=== PATIENT | male | born 1985 | race Caucasian/White ===

== ENCOUNTER 2016-07-03 09:42 | Emergency (ER) | payer BC ==
[~2016-07-03] VITALS: Ht 175.3 cm; Wt 86.2 kg
[~2016-07-03 09:42] MED LIST: APAP/CODEINE ELI5 M1 OR; NAPROSYN500 MG PO; PRILOSEC40 MG PO; ZOFRAN ODT4 MG PO
[2016-07-03 09:43] VITALS: BP 122/91
[2016-07-03] MEDS ORDERED: PROVENTIL HFA6.7 G1 INH (10:27)
[2016-07-03] MEDS ORDERED: PREDNISONE 20 M20 MG PO (10:27)
== END 2016-07-03 11:00 | disposition home or self-care (01) ==
LOC: ER 09:42
DX: J40 Bronchitis, not specified as acute or chronic (principal); R06.02 Shortness of breath; H61.22 Impacted cerumen, left ear; R05 Cough; K21.9 Gastro-esophageal reflux disease without esophagitis

== ENCOUNTER 2016-11-12 15:13 | Emergency (ER) | payer BC ==
[~2016-11-12] VITALS: Ht 175.3 cm; Wt 83.0 kg
--- NOTE | ~2016-11-12 | EKG ---
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
[~2016-11-12 15:13] MED LIST changes: +PREDNISONE 20 M20 MG PO; +PROVENTIL HFA6.7 G1 INH
[2016-11-12 17:33] LABS: ABSOLUTE NEUTROPHILS 3.2 thou/uL (1.4-8.2); BASOPHILS 0.3 % (0.0-2.0); EOSINOPHILS 1.7 % (0.0-3.0); HEMATOCRIT 45.5 % (42.0-52.0); HEMOGLOBIN 15.6 gm/dL (14.0-18.0); LYMPHOCYTES 36.8 % (24.0-44.0); MANUAL DIFF NO; MCH 28.5 pg (26.0-34.0); MCHC 34.4 g/dL (28.0-37.0); MONOCYTES 6.7 % (1.0-8.0); PLATELET COUNT 234 thou/uL (150-400); POLYS 54.5 % (36.0-66.0); RBC 5.48 mil/uL (4.50-6.00); RDW 12.8 % (10.5-14.5); WBC 5.9 thou/uL (4.0-11.0)
[2016-11-12 17:43] LABS: ANION GAP 7 mmol/L (7-16); BUN 17 mg/dL (7-18); CHLORIDE 105 mmol/L (98-107); CO2 30 mmol/L (21-32); GLUCOSE 98 mg/dL (74-106); POTASSIUM 3.8 mmol/L (3.5-5.1); SODIUM 142 mmol/L (136-145)
[2016-11-12 17:56] LABS: NT-PRO BRAIN NAT PEPTIDE 17 pg/mL (<300); TROPONIN-I < 0.04 ng/mL (<0.04-0.07)
[2016-11-12 19:58] VITALS: BP 113/78
[2016-11-12] MEDS ORDERED: NAPROSYN500 MG PO (20:01)
== END 2016-11-12 20:09 | disposition home or self-care (01) ==
LOC: ER 15:13
PROVIDERS: Nurse Practitioner
DX: R07.89 Other chest pain (principal); K21.9 Gastro-esophageal reflux disease without esophagitis

== ENCOUNTER → 2017-09-19 | Outpatient (CLI) | payer BC ==
--- NOTE | ~2017-09-19 | EKG ---
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
== END ==
LOC: RAD 08:43 → CV 08:43
DX: R07.9 Chest pain, unspecified (principal); K21.9 Gastro-esophageal reflux disease without esophagitis; M25.551 Pain in right hip

== ENCOUNTER 2018-05-29 20:18 | Emergency (ER) | payer BC ==
[~2018-05-29] VITALS: Ht 175.3 cm; Wt 78.9 kg
[2018-05-29 20:19] VITALS: BP 88/65
[2018-05-29] MEDS ORDERED: OMEPRAZOLE40 MG PO (20:25)
[2018-05-29] MEDS ORDERED: IBUPROFEN 600600 M1 PO (21:10)
== END 2018-05-29 21:19 | disposition home or self-care (01) ==
LOC: ER 20:18
DX: S50.11XA Contusion of right forearm, initial encounter (principal); K21.9 Gastro-esophageal reflux disease without esophagitis; Z90.49 Acquired absence of other specified parts of digestive tract; W20.8XXA Other cause of strike by thrown, projected or falling object, initial encounter; Y92.89 Other specified places as the place of occurrence of the external cause; Y99.0 Civilian activity done for income or pay; Y99.8 Other external cause status

== ENCOUNTER 2019-09-30 18:32 | Emergency (ER) | payer BC ==
[~2019-09-30] VITALS: Ht 172.7 cm; Wt 83.5 kg
--- NOTE | ~2019-09-30 | EKG ---
[facility] [place] [address] ELECTROCARDIOGRAM REPORT Name: SILIVA VALERA II Room #: REG DEBBIE Ambriz#: [id number] Admission: 09/30/19 Attend Phys: Discharge: Date of : 85 Report #: [id number] THIS REPORT FOR: cc: Iram Delarosa MD, Amir R. 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
[~2019-09-30 18:32] MED LIST changes: +IBUPROFEN 600600 M1 PO; +OMEPRAZOLE40 MG PO
[2019-09-30 19:01] LABS: ABSOLUTE NEUTROPHILS 3.2 thou/uL (1.4-8.2); BASOPHILS 0.6 % (0.0-2.0); EOSINOPHILS 2.5 % (0.0-3.0); HEMATOCRIT 45.5 % (42.0-52.0); HEMOGLOBIN 15.5 gm/dL (14.0-18.0); LYMPHOCYTES 36.1 % (24.0-44.0); MCH 27.7 pg (26.0-34.0); MCV 81.3 fL (80.0-100.0); MONOCYTES 7.4 % (1.0-8.0); PLATELET COUNT 285 thou/uL (150-400); POLYS 53.4 % (36.0-66.0); RBC 5.59 mil/uL (4.50-6.00); RDW 13.3 % (10.5-14.5)
[2019-09-30 19:07] LABS: ANION GAP 12 mmol/L (7-16); BUN 27 mg/dL (7-18); CALCIUM 9.3 mg/dL (8.5-10.1); CHLORIDE 101 mmol/L (98-107); CO2 25 mmol/L (21-32); CREATININE 1.2 mg/dL (0.7-1.3); GLUCOSE 76 mg/dL (74-106); POTASSIUM 3.5 mmol/L (3.5-5.1); SODIUM 138 mmol/L (136-145)
[2019-09-30 19:17] LABS: ALBUMIN 4.4 g/dL (3.4-5.0); LIPASE 173 U/L (73-393); SGOT 25 U/L (15-37); SGPT 31 U/L (30-65); TOTAL BILIRUBIN 0.4 mg/dL (<0.1-1.0); TOTAL PROTEIN 8.4 g/dL (6.4-8.2); TROPONIN-I <0.06 ng/mL (<0.06)
[2019-09-30] MEDS ORDERED: PRILOSEC OTC20 MG PO (20:15)
[2019-09-30 20:25] VITALS: BP 124/79
--- NOTE | 2019-10-01 07:48 | EKG ---
[facility] [place] [address] ELECTROCARDIOGRAM REPORT Name: VALERASILVIA KAYLEN Room #: DEP MVikas#: [id number] Admission: 09/30/19 Attend Phys: Discharge: 09/30/19 Date of : 85 Report #: [id number] THIS REPORT FOR: cc: Iram Delarosa MD, Amir R. 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
== END 2019-09-30 20:44 | disposition home or self-care (01) ==
LOC: ER 18:32
PROVIDERS: Emergency Medicine
DX: K22.2 Esophageal obstruction (principal); K21.9 Gastro-esophageal reflux disease without esophagitis; R11.2 Nausea with vomiting, unspecified; Z90.49 Acquired absence of other specified parts of digestive tract

== ENCOUNTER 2020-09-01 18:01 | Emergency (ER) | payer BC ==
[~2020-09-01] VITALS: Ht 175.3 cm; Wt 86.2 kg
[~2020-09-01 18:01] MED LIST changes: +PRILOSEC OTC20 MG PO
[2020-09-01] MEDS ORDERED: OMEPRAZOLE40 MG PO (21:34)
[2020-09-01 22:43] VITALS: BP 96/60
--- NOTE | 2020-09-03 10:21 | P ---
[facility] [place] [address] PROCEDURE REPORT Name: SILVIA VALERA II [id number] Admission: 09/01/20 Attend Phys: Discharge: 09/01/20 Date of : 85 Report #: [id number] THIS REPORT FOR: cc: Iram Delarosa MD, Amir R. MD McElhinney, Christian C. MD ~ DATE OF SERVICE: 09/01/2020 PROCEDURE PERFORMED: Upper endoscopy with food impaction removal and biopsies. HISTORY OF PRESENT ILLNESS: The patient is a 35-year-old male who was eating a piece of chicken around 5:30 this evening after swallowing a large piece. He has been unable to swallow liquids or his own saliva. He does have a previous history of gastroesophageal reflux disease, taking omeprazole on a p.r.n. basis. Plan is for upper endoscopy. DESCRIPTION OF PROCEDURE: The risks and benefits of the procedure were explained to the patient, those risks including but not limited to bleeding, perforation and the risk of sedation. He understood these risks and gave informed consent. Sedation was given using propofol per anesthesia. Next, using a standard Olympus upper endoscope, the scope was placed in the patient's mouth and advanced under direct vision into the mid to distal esophagus, at which point obvious food impaction was noted. I was able to aspirate any liquid away. I then used a Velez Net and removed the impaction into sweeps. After this, when the scope was advanced into the esophagus, no further impaction was noted. The scope was then advanced into the patient's stomach. There was no food in the stomach. A small amount of liquid was aspirated away. Overall, the gastric mucosa was normal. The pylorus was normal and patent. In the duodenal bulb, there was a mild duodenitis. The first and second portions of the duodenum were normal. The scope was then brought back up into the patient's stomach and biopsies were obtained to rule out H. pylori. The scope was then brought back up into the patient's esophagus. There was evidence of grade B erosive esophagitis. Therefore, I did not dilate at this time. Also noted were changes, most likely consistent with eosinophilic esophagitis. Biopsies were obtained of the esophagus as well. At this point, the scope was then withdrawn and the procedure terminated. The patient tolerated the procedure well. IMPRESSION: 1. Food impaction, status post removal as described above. 2. Likely eosinophilic esophagitis. Biopsies obtained. 3. Grade B erosive esophagitis. 4. Mild duodenitis. 5. Otherwise, normal upper endoscopy. RECOMMENDATIONS: [address] [address] PROCEDURE REPORT Name: SILVIA VALERA II Room #: DEP Katina#: [id number] Admission: 09/01/20 Attend Phys: Discharge: 09/01/20 Date of : 85 Report #: [id number] 1. Observe the patient post-removal. 2. Advised the patient to chew his food thoroughly. 3. Would recommend long-term PPI therapy on a daily basis. 4. Await biopsy results. Thank you for allowing me to participate in his care. <ELECTRONICALLY SIGNED> By: Raphael Collins MD 09/03/20 1021 Raphael Collins MD /nt
--- NOTE | 2020-09-03 10:21 | HC ---
[facility] [place] [address] CONSULTATION Name: SILVIA VALERA II Room #: DEP Katina#: [id number] Admission: 09/01/20 Attend Phys: Discharge: 09/01/20 Date of : 85 Report #: [id number] THIS REPORT FOR: cc: Iram Delarosa MD, Amir R. MD McElhinney, Christian C. MD ~ DATE OF SERVICE: 09/01/2020 HISTORY OF PRESENT ILLNESS: The patient is a 35-year-old male who was eating a piece of chicken earlier today around 5:30 p.m., which has become lodged in his esophagus and since that time, he has not been able to swallow liquids or his own saliva. He had similar episode in the past, but it passed spontaneously. He does have a history of reflux at one time, was taking PPI therapy on a regular basis, more recently just takes it p.r.n. He does report some chest discomfort. He denies any fevers or chills. No shortness of breath. PAST MEDICAL HISTORY: Gastroesophageal reflux disease, previous cholecystectomy, previous knee surgery. MEDICATIONS: Omeprazole, but is only taking on a p.r.n. basis. ALLERGIES: No known allergies. SOCIAL HISTORY: Denies any tobacco or alcohol use. REVIEW OF SYSTEMS: As per HPI. FAMILY HISTORY: Unknown. PHYSICAL EXAMINATION: VITAL SIGNS: Temperature is 98.5, pulse 87, blood pressure 112/68, respiratory rate is 22. GENERAL: He is alert and oriented x 3, in no acute distress. HEENT: Sclerae nonicteric. Oropharynx clear. He is spitting into an emesis basin. CARDIOVASCULAR: Regular rate and rhythm. CHEST: Clear to auscultation bilaterally. ABDOMEN: Soft, nontender, nondistended, normoactive bowel sounds. EXTREMITIES: No cyanosis, clubbing or edema. ASSESSMENT AND PLAN: Food impaction in a patient with a history of gastroesophageal reflux disease, recommend proceeding with an upper endoscopy for food impaction removal. I will make further recommendations after endoscopy. [facility] [address] [facility] [place] [address] CONSULTATION Name: SILVIA VALERA II Room #: [facility] DEBBIE Ambriz#: [id number] Admission: 09/01/20 Attend Phys: Discharge: 09/01/20 Date of : 85 Report #: [id number] Thank you for allowing me to participate in his care. <ELECTRONICALLY SIGNED> By: Raphael Collins MD 09/03/20 1021 891 Raphael Collins MD /nt
--- NOTE | 2020-09-05 17:06 | PATH ---
[facility] [address] [address] PATHOLOGY RPT PROCEDURE Name: JERARDO VALERA II Room #: DEP DEBBIE Ambriz#: [id number] Admission: 09/01/20 Date of : 85 Discharge: 09/01/20 Report #: [id number] Path Case #: [id number] [facility] Accession Number: [id number] . 01 Material submitted: . PART A: gastrointestinal site - BIOPSY GASTRIC PART B: esophagus - BIOPSY ESOPHAGEAL . 01 Clinical history: . A: R/O H PYLORI B: R/O EOSINOPHILIC ESOPHAGITIS FOOD BOLUS . 02 Diagnosis: A. Gastric mucosa, gastric rule out H. pylori, endoscopic biopsy: - Mild chronic gastritis. - Negative for intestinal metaplasia or atrophy. - Negative for Helicobacter pylori (properly controlled immunohistochemical stain performed). . B. Squamous mucosa, esophageal rule out eosinophilic esophagitis, endoscopic biopsy: - Mild active esophagitis with subtle increase in intraepithelial eosinophils up to 17/HPF, see comment. - Negative for intestinal metaplasia or dysplasia. LBQ 09/05/2020 1546 Local . 02 Comment: Examination of the esophageal biopsy tissue shows squamous mucosa with a marked number of intraepithelial eosinophils. Although eosinophils are commonly encountered in inflammation due to reflux esophagitis, the eosinophils in the present specimen are numerous, exceeding 17/HPF. Apart from reflux esophagitis, potential etiologies for the histologic pattern include allergic and collagen vascular diseases, fungal or parasitic infections, and eosinophilic esophagitis (idiopathic). Please correlate with clinical and endoscopic findings. (IUV/db; 09/05/2020) . 02 Electronically signed: . Sonia Laguerre MD, Pathologist NPI- [id number] . 01 Gross description: . A. The specimen is received in formalin, labeled "Jerardo Valera II, biopsy gastric". Received are three segments of pale peraza tissue ranging in size from 0.3-0.6 cm in maximum dimensions. The specimen is submitted entirely in [place] [address] PATHOLOGY RPT PROCEDURE Name: JERARDO VALERA II [id number] Admission: 09/01/20 Date of : 85 Discharge: 09/01/20 Report #: [id number] Path Case #: [id number] . B. The specimen is received in formalin, labeled "Jerardo Valera II, biopsy esophageal". Received are three segments of pale peraza tissue ranging in size from 0.2-0.3 cm in maximum dimensions. The specimen is submitted entirely in cassette B1. (CAA; 09/04/2020) QAC/QAC 09/04/2020 1616 Local . 02 Pathologist provided ICD-10: K29.50, K20.90 . 02 CPT . 935889, 180658, G63945 Specimen Comment: A courtesy copy of this report has been sent to [phone], [phone] Specimen Comment: [id number] Specimen Comment: Report sent to DR MANSFIELD / DR ESTEBAN Performed at: [address], [place] [id number] MD Dwight Burt MD Phone: [phone] Performed at: [address] [id number] MD Sonia Laguerre MD Phone: [phone]
== END 2020-09-01 22:52 | disposition home or self-care (01) ==
LOC: ER 18:01
DX: T18.128A Food in esophagus causing other injury, initial encounter (principal); K29.70 Gastritis, unspecified, without bleeding; K21.9 Gastro-esophageal reflux disease without esophagitis; R11.2 Nausea with vomiting, unspecified; Y92.89 Other specified places as the place of occurrence of the external cause
CPT/HCPCS: 62110; 62900